=== PATIENT | female | born 1985 | race Caucasian/White ===

== ENCOUNTER 2021-04-19 05:45 | Observation (INO) ==
[2021-04-19 06:45] LABS: Bilirubin,Urine Negative (Negative); Blood,Urine Large (Negative); Clarity,Urine Turbid (Clear); Color,Urine Light-Yellow (Yellow); Glucose,Urine (UA) Normal (Normal); Ketones,Urine Negative (Negative); Leukocyte Esterase,Urine Large (Negative); Nitrite,Urine Negative (Negative); Protein,Urine 100 mg/dL (Neg-Trace); Specific Gravity,Urine 1.018 (1.010-1.025); Urobilinogen,Urine Normal (Normal)
[2021-04-19] MEDS ORDERED: Ringers Solution, Lactated 1,000 ML IVC ONE (07:00)
[2021-04-19] MEDS ORDERED: cefTRIAXone 1,000 MG in 0.9 % Sodium Chloride Mini Bag 100 ML IVPB ONE (07:01)
== END 2021-04-19 09:40 | disposition home or self-care (01) ==
LOC: 1NENULAB
PROVIDERS: ADMIT Obstetrics & Gynecology; ATTEND Obstetrics & Gynecology

== ENCOUNTER 2021-07-01 04:00 | Inpatient (IN) ==
[2021-07-01] MEDS ORDERED: Ondansetron 4 MG/2 ML VIAL IVP PRN ×3 (09:44→17:17)
[2021-07-01] MEDS ORDERED: Famotidine 20 MG/2 ML VIAL IVP PRN (09:44)
[2021-07-01] MEDS ORDERED: Metoclopramide 10 MG/2 ML VIAL IVP PRN ×2 (09:44→17:17)
[2021-07-01] MEDS ORDERED: CeFAZolin 2,000 MG/120 ML BAG IVPB ONE (09:44)
[2021-07-01] MEDS ORDERED: Lidocaine -MPF 1% 5 ML AMPUL ID PRN (09:44)
[2021-07-01] MEDS ORDERED: Azithromycin 500 MG in 0.9 % Sodium Chloride 250 ML IVPB PRN (09:44)
[2021-07-01] MEDS ORDERED: Naloxone 0.4 MG/ML INJ IVP PRN (09:44)
[2021-07-01] MEDS ORDERED: Ringers Solution, Lactated 1,000 ML IVC SCH ×2 (09:45→17:17)
[2021-07-01] MEDS ORDERED: Oxytocin 30 UNIT/503 ML BAG IVC SCH (09:45)
[2021-07-01] MEDS ORDERED: *HR* HYDROmorphone PF 0.5 MG/0.5 ML SYRINGE IVP PRN (10:17)
[2021-07-01 11:51] LABS: Basophils % 0.2 %; Eosinophils # 0.1 K/mcL (0.0-0.6); Eosinophils % 0.7 %; Hematocrit 36.4 % (35.3-44.9); Hemoglobin 12.1 g/dL (11.5-15.4); Immature Granulocytes % 0.5 % (0-4); Lymphocytes # 1.6 K/mcL (0.6-4.6); Lymphocytes % 19.5 %; Mean Corpuscular HGB Conc 33.2 g/dL (31.6-35.5); Mean Corpuscular Hemoglobin 30.6 pg (28.0-33.3); Mean Corpuscular Volume 91.9 fL (83.0-100.0); Mean Platelet Volume 11.5 fL (9.4-12.4); Monocytes # 0.5 K/mcL (0.0-1.3); Monocytes % 6.6 %; Neutrophils # 5.8 K/mcL (1.6-8.9); Platelet Count 165 K/mcL (140-400); Red Blood Count 3.96 M/mcL (3.82-4.97); Red Cell Distribution Width 13.4 % (11.5-14.5); Segmented Neutrophils % 72.5 %
[2021-07-01] MEDS ORDERED: *HR* FentaNYL (PF) 100 MCG/2 ML VIAL ONE (12:02)
[2021-07-01] MEDS ORDERED: Ondansetron 4 MG/2 ML VIAL ONE (12:02)
[2021-07-01] MEDS ORDERED: Acetaminophen IV 1,000 MG/100 ML BAG IVPB ONE (12:02)
[2021-07-01] MEDS ORDERED: *HR* Morphine Sulfate/PF 10 MG/10 ML AMPUL ONE (12:02)
[2021-07-01] MEDS ORDERED: Ketorolac 30 MG/ML VIAL ONE (12:05)
[2021-07-01 12:19] LABS: Influenza A PCR Negative (Negative); Influenza B PCR Negative (Negative); Resp. Syncytial Virus PCR Negative (Negative)
[2021-07-01 12:28] LABS: SARS-CoV-2 by PCR (In House) Negative (Negative)
[2021-07-01 13:02] LABS: Amphetamine Screen,Urine Negative ng/mL (Cutoff=1000); Barbiturate Screen,Urine Negative ng/mL (Cutoff=200); Benzodiazepines Screen,Urine Negative ng/mL (Cutoff=200); Cannabinoid Screen,Urine Negative ng/mL (Cutoff = 50); Cocaine Screen,Urine Negative ng/mL (Cutoff= 300); Opiate Screen,Urine Negative ng/mL (Cutoff=300); Phencyclidine Screen,Urine Negative ng/mL (Cutoff=25)
[2021-07-01] MEDS ORDERED: Rho Immune Globulin 1,500 UNIT SYRINGE IM ONE (17:17)
[2021-07-01] MEDS ORDERED: OXYTOCIN/RINGERS LACTATE 10 UNIT/166.6 ML BAG IVC ONE (17:17)
[2021-07-01] MEDS: Acetaminophen 325 MG TABLET PO SCH ×2 (17:50→23:32)
[2021-07-01] MEDS: Ibuprofen 600 MG TABLET PO SCH ×2 (17:50→23:32)
[2021-07-01] MEDS ORDERED: Ondansetron ODT 4 MG TAB.RAPDIS SL PRN (23:47)
[2021-07-02 04:53] VITALS: O2SAT 97
[2021-07-02 05:49] LABS: Basophils % 0.2 %; Eosinophils % 0.1 %; Hematocrit 32.3 % (35.3-44.9); Hemoglobin 10.9 g/dL (11.5-15.4); Immature Granulocytes % 0.5 % (0-4); Lymphocytes # 1.7 K/mcL (0.6-4.6); Lymphocytes % 13.7 %; Mean Corpuscular HGB Conc 33.7 g/dL (31.6-35.5); Mean Corpuscular Hemoglobin 31.3 pg (28.0-33.3); Mean Corpuscular Volume 92.8 fL (83.0-100.0); Mean Platelet Volume 11.6 fL (9.4-12.4); Monocytes # 0.8 K/mcL (0.0-1.3); Monocytes % 6.8 %; Neutrophils # 9.5 K/mcL (1.6-8.9); Platelet Count 161 K/mcL (140-400); Red Blood Count 3.48 M/mcL (3.82-4.97); Red Cell Distribution Width 13.5 % (11.5-14.5); Segmented Neutrophils % 78.7 %
[2021-07-02 05:54] LABS: White Blood Count 12.1 K/mcL (4.3-11.1)
[2021-07-02] MEDS: Acetaminophen 325 MG TABLET PO SCH ×2 (08:45→17:41)
[2021-07-02] MEDS: Simethicone 80 MG TAB.CHEW PO PRN (08:45)
[2021-07-02] MEDS: Prenatal Vit/FA 1 EACH TABLET PO SCH (08:45)
[2021-07-02] MEDS: Ibuprofen 600 MG TABLET PO SCH ×2 (08:45→17:40)
[2021-07-02] MEDS ORDERED: NON-FORMULARY MEDICATION 1 EACH EACH (Prenat 115/Iron Fum/Folic/Dss [Prenatal 19 Tablet] 1 PO SCH (09:00)
[2021-07-02] MEDS: *HR* OxyCODONE Immed Rel 5 MG TABLET PO PRN (13:19)
[2021-07-03] MEDS: Acetaminophen 325 MG TABLET PO SCH ×2 (00:08→08:21)
[2021-07-03] MEDS: Ibuprofen 600 MG TABLET PO SCH ×2 (00:08→08:21)
[2021-07-03 07:26] VITALS: BP 110/76; PULSE 76; TEMP 98.2
[2021-07-03] MEDS: Prenatal Vit/FA 1 EACH TABLET PO SCH (08:21)
[2021-07-03] MEDS: Simethicone 80 MG TAB.CHEW PO PRN (08:22)
[2021-07-03] MEDS: *HR* OxyCODONE Immed Rel 5 MG TABLET PO PRN (11:26)
== END 2021-07-03 11:45 | disposition home or self-care (01) | DRG 788 ==
LOC: 1NENULAB 09:31 → 1NENUOBS 17:12
PROVIDERS: ADMIT Student in an Organized Health Care Education/Training Program; ATTEND Student in an Organized Health Care Education/Training Program